=== PATIENT | male | born 1970 | race Caucasian/White ===

== ENCOUNTER 2024-03-31 15:17 | Emergency (ER) | payer MEDICAID ==
[~2024-03-31] VITALS: Ht 182.9 cm; Wt 80.0 kg
[2024-03-31 15:20] VITALS: TEMP 36.6; O2SAT 97
[2024-03-31 18:15] VITALS: BP 122/78; PULSE 70; RESP 16; TEMP 98.8
[2024-03-31] MEDS: KETOROLAC 30MG/ML VIAL IM ONE (18:15)
[2024-03-31] MEDS: ACETAMINOPHEN 325MG TABLET PO ONE (18:15)
[2024-03-31] MEDS ORDERED: NAPR220C61 MT (19:46)
== END 2024-03-31 19:51 | disposition home or self-care (01) ==
LOC: ER 15:17
DX: S49.91XA Unspecified injury of right shoulder and upper arm, initial encounter (principal); G89.11 Acute pain due to trauma; W05.0XXA Fall from non-moving wheelchair, initial encounter; Y93.89 Activity, other specified; Y92.89 Other specified places as the place of occurrence of the external cause; Y99.8 Other external cause status
CPT/HCPCS: 99284; 73030; 73100; 73130; 96372; J1885; A4565